=== PATIENT | female | born 1975 | race African-American/Black ===

== ENCOUNTER 2017-01-19 10:15 | Emergency (ER) | payer MEDICAID ==
[~2017-01-19] VITALS: Ht 172.7 cm; Wt 70.3 kg
--- NOTE | ~2017-01-19 | CT71 ---
[facility] A Service of [facility] RADIOLOGY TEXT RESULTS PATIENT: KATIE TORRES LOCATION: CFTX : 77 UNIT #: [id number] AGE: [address]: Katie Flor SEX: F ORDER DR: [id number] [facility] [address] [place], [place] [address] [id number] E MR#: [id number] Acc #: [id number] NAME: KATIE TORRES : 1975 SEX: F STUDY DATE/TIME: 01/19/2017 11:55 UNIT: CFTX ROOM: STUDY DESCRIPTION: CT Head Wo Contrast Attending Physician: Katie Flor P.A.-C. Ordering Physician: Katie Flor P.A.-C. Primary Care Physician: [facility] IMAGING REPORT This report is preliminary unless electronic signature is present EXAM Head CT without HISTORY Headache, sinus pressure, diffuse headache for 2 weeks off and on with dizziness and visual disturbance. Anemia and seizure disorder history. COMMENT Routine noncontrast head CT is reviewed. There is a comparison from 03/22/2016. This CT exam was performed with one or more of the following radiation dose reduction techniques: automatic exposure control, adjustment of mA and/or kV according to patient size, and iterative reconstruction. There is no displaced calvarial fracture. The mastoid air cells where visualized are clear and there is mild mucosal thickening in the visualized paranasal sinuses. There is no evidence for acute intracranial hemorrhage or extraaxial fluid collection. The pollack-white matter junction is well maintained. No acute cortical infarct is suspected on noncontrast CT. Ventricles are normal in size and configuration. The basilar cisterns are patent. There is no intracranial mass effect. IMPRESSION 1. No acute intracranial abnormality suspected but if there is clinical concern for acute CVA followup imaging would be indicated, preferably with an MRI. 2. Partly seen is a paranasal sinus disease without sinus air-fluid level. [facility] A Service of [facility] RADIOLOGY TEXT RESULTS PATIENT: KATIE TORRES LOCATION: [place] : 77 UNIT #: [id number] AGE: [address]: Katie Flor SEX: F ORDER DR: Dictated by... Sabrina Funes M.D. THIS IS AN ELECTRONICALLY VERIFIED REPORT Sabrina Funes M.D. at 01/20/2017 4:53 PM ADRIAN/mirian TD: 01/20/2017 02:01 JOB #: [id number] MEDICAL IMAGING REPORT Page 1 of 1 COPY
[~2017-01-19 10:15] MED LIST: ACETAMINOPHEN PO; AMOXICILLIN500 M1 PO; AUGMENTIN PO; AZITHROMYCIN250 MG PO; BACTRIM DS TABL1 TA1 PO; CIALIS PO; DEPAKOTE PO; DOXYCYCLINE PO; FLEXERIL PO; FLEXERIL10 MG PO; HYDROCODONE-APA1 T44 PO; IBUPROFEN800 MG PO; K-DUR20 ME1 PO; KETOPROFEN PO; LEVAQUIN PO; NAPROSYN500 MG PO; NO MEDICATIONS; ORUDIS75 M1 DOB; PHENERGAN PO; PHENERGAN25 MG PO; PYRIDIUM PO; TYLENOL #3 PO; TYLOX 5/500 CAP1 CAP PO; VICODIN 5/500 T1 TAB PO; VICODIN PO; VOLTAREN75 MG PO
== END 2017-01-19 13:30 | disposition home or self-care (01) ==
LOC: CED 10:15 → CFTX 10:15
DX: J32.2 Chronic ethmoidal sinusitis (principal); I10 Essential (primary) hypertension; G43.909 Migraine, unspecified, not intractable, without status migrainosus; F31.9 Bipolar disorder, unspecified; G40.909 Epilepsy, unspecified, not intractable, without status epilepticus; D64.9 Anemia, unspecified; F17.210 Nicotine dependence, cigarettes, uncomplicated; Z79.899 Other long term (current) drug therapy; Z88.8 Allergy status to other drugs, medicaments and biological substances
CPT/HCPCS: 36415; 70450; 84703; 87651; 96361; 96374; 96375; 99284; J1100; J1200; J1885; J2765